=== PATIENT | female | born 1985 ===

== ENCOUNTER 2023-02-18 07:34 | Outpatient (REF) | payer OTHER, SELFPAY ==
[2023-02-18 07:47] LABS: MANUAL DIFF FLAG NO
[2023-02-18 08:10] LABS: Basophils Percent Auto 0.2 % (0-2); Eosinophils Absolute Auto 0.2 X10*3/uL (0.0-0.4); Eosinophils Percent Auto 2.6 % (0-4); Hematocrit 39.9 % (37.0-47.0); Hemoglobin 12.3 g/dl (12.0-16.0); Imm Gran Abs Auto 0.01 X10*3/uL (0.00-0.03); Imm Gran Pct Auto 0.2 % (0.0-0.4); Lymphocytes Percent Auto 33.9 % (20-40); Mean Corpuscular HGB Conc 30.8 g/dl (31.0-35.0); Mean Corpuscular Hemoglobin 25.3 pg (27.0-33.0); Mean Corpuscular Volume 82.1 fL (80.0-98.0); Mean Platelet Volume 10.5 fL (9.4-12.3); Monocytes Absolute Auto 0.4 X10*3/uL (0.1-1.2); Monocytes Percent Auto 6.5 % (2-11); Neutrophils Absolute Auto 3.3 x10*3/uL (2.0-8.3); Neutrophils Percent Auto 56.6 % (45-73); Platelet Count 398 X10*3/uL (160-400); Red Blood Count 4.86 X10*6/uL (4.20-5.50); Red Cell Distribution Width 13.7 % (11.0-16.0); White Blood Count 5.9 X10*3/uL (4.8-10.8)
[2023-02-18 09:00] LABS: TSH reflex Free T4 9.73 uIU/mL (0.32-4.0)
[2023-02-18 09:03] LABS: Alanine Aminotransferase 35 U/L (0-31); Albumin Level 4.1 g/dL (3.5-5.0); Alkaline Phosphatase 79 U/L (39-117); Anion Gap 10 (12-20); Aspartate Amino Transferase 32 U/L (5-31); Bilirubin Total 0.5 mg/dL (0.0-1.0); Blood Urea Nitrogen 8 mg/dL (9-16); Calcium 9.6 mg/dL (8.4-10.2); Carbon Dioxide 27 mmol/L (22-29); Chloride 106 mmol/L (96-108); Cholesterol 193 mg/dL; Estimated Glomerular Filt Rate > 60; HDL Cholesterol 43 mg/dL; LDL Cholesterol Calculated 141 mg/dl; Potassium 4.4 mmol/L (3.3-5.1); Sodium 139 mmol/L (135-145); Total Protein 7.6 g/dL (6.5-8.0); Triglycerides 45 mg/dL
[2023-02-18 10:17] LABS: Free T4 (Free Thyroxine) 0.92 ng/dL (0.71-1.85)
[2023-02-18 11:56] LABS: Glucose Random 99 mg/dL (60-115)
== END 2023-02-18 07:35 | disposition home or self-care (01) ==
LOC: HO.LAB 07:34
PROVIDERS: PCP Nurse Practitioner Family; Visit Provider Nurse Practitioner Family
DX: Z13.0 Encounter for screening for diseases of the blood and blood-forming organs and certain disorders involving the immune mechanism (principal); Z13.220 Encounter for screening for lipoid disorders; E03.9 Hypothyroidism, unspecified
CPT/HCPCS: 36415; 80053; 80061; 84439; 84443; 85025

== ENCOUNTER 2023-08-15 10:54 | Outpatient (AMB) | payer OTHER, SELFPAY ==
--- NOTE | 2023-08-15 10:56 | A.OFFPC_ITS ---
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 Patient of Dr. Mchugh presents today for physical exam. TSH in February 9.73, Free T4 0.92, at previous appointment patient revealed that she had been out of her levothyroxine x1 month and revealed elevated lfts patient was advised to get repeat blood work in 8 weeks however I do not see the results of this. Patient reminded to get previously ordered blood work completed. Patient states feeling fatigued, currently works 12 hour shifts over nights has been working 6 days a week. Labs ordered as as vitamin-D to further evaluate for any vitamin deficiencies Eye exam: Recommended every couple years. Flu shot refused, TDAP : Given in office today PFSH Medical History Acquired hypothyroidism Surgical History No pertinent past surgical history Family History Mother Diabetes Arthritis Thyroid disease Daughter Mental health disorder Social History Housing: House Alcohol intake: never Patient Tobacco Use Status: Former Tobacco user (1 year) e-Cigarette/Vaping Use: Never Used service: No Current occupational status: employed Questionnaire Thrive Questionnaire Date Thrive assessed: 02/14/23 RADHA-7 AMB Questionnaire RADHA-7 Date RADHA - 7 assessed: 02/14/23 Source: Developed by Drs. Carlos Gillespie, Mitzi Devine, Quentin Strickland and colleagues, with an educational manolo from [employer]. Review of Systems Const Denies chills, Denies fatigue, Denies fever(s) and Denies poor appetite Eyes Denies no additional complaints ENT Reports Normal hearing present Card Denies chest pain, Denies syncope, Denies rapid heart rate and Denies dyspnea Resp Denies cough and Denies dyspnea GI Denies change in stool character, Denies constipation, Denies diarrhea, Denies nausea and Denies vomiting Denies urinary frequency, Denies dysuria and Denies urinary urgency Neuro Reports Normal hearing present, Denies confusion and Denies syncope Psych Denies confusion Endo Denies fatigue Physical exam (Primary Care) Vital Signs: Last Vital Signs Pulse 98 08/15/23 11:00 BP 118/78 08/15/23 11:00 Pulse Ox 98 08/15/23 11:00 Oxygen Delivery Method Room Air 08/15/23 11:00 BMI result Body Mass Index 40.8 Tobacco/Smoking Status: Tobacco use Status Tobacco use date assessed 08/15/23 08/15/23 11:01 Patient Tobacco Use Status Former Tobacco user (1 year) 08/15/23 10:56 e-Cigarette/Vaping Use Never Used 08/15/23 10:56 Thrive Assessment: Date of Thrive Assessment Date Thrive assessed 02/14/23 08/15/23 10:56 Const General: No confusion Orientation/consciousness: No confusion HENMT Head: Yes normocephalic and Yes atraumatic Eyes Conjunctivae: conjunctivae normal Chest Chest palpation & inspection: normal inspection of the chest Resp Effort & Inspection: normal respiratory effort Auscultation: clear to auscultation bilaterally, no crackles, no rhonchi and no wheezes Cardio Rate: regular rate Rhythm: regular rhythm Heart sounds: S1 normal heart sound present and S2 normal heart sound present GI Inspection: Yes normal to inspection Neuro General: No confusion Cranial nerves: Yes Normal hearing present Extrem General: No edema Immunizations Adacel(Tdap Adolesn/Adult)(PF) 2 Lf-(2.5-5-3-5)-5 Lf/0.5 mL IM syringe Performing Provider: ALTHEA Shore [facility] [place] [facility] Administered by: Lina Wu RN on 08/15/23 11:34 Dose Route Admin Location Dispensed Lot Number Expiration Date 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 red meat. Follow-up fasting lipid panel ordered (2) Elevated LFTs: Code(s): R79.89 - Other specified abnormal findings of blood chemistry Plan: Patient reminded to get repeat CMP completed. (3) Acquired hypothyroidism: Code(s): E03.9 - Hypothyroidism, unspecified Plan: Patient advised to get repeat TSH. Patient states she had never picked up the levothyroxine 150 mcg, was currently taking levothyroxine 125 mcg daily. Patient advised to get previously ordered blood work completed to follow-up on her TSH level. (4) Physical exam, annual: Code(s): Z00.00 - Encounter for general adult medical examination without abnormal findings Plan: Follow-up in 1 year Plan Follow up in 1 year. Orders: Orders TDaP State Immunization Today Z23 - Encounter for immunization Complete Blood Count Auto Diff Today R79.89 - Other specified abnormal findings of blood chemistry Lipid Panel Today E78.5 - Hyperlipidemia, unspecified Vitamin D 25-OH Total Today R53.83 - Other fatigue Vitamin B12 and Folate Today R53.83 - Other fatigue Medications: Refilled levothyroxine 150 mcg PO DAILY 30 caps 2RF Coding Level of Care Code Est Pt Prev Care 18-39y(92708) Diagnoses Hyperlipidemia E78.5 Elevated LFTs R79.89 Acquired hypothyroidism E03.9 Physical exam, annual Z00.00
[2023-08-15 11:00] VITALS: BP 118/78; PULSE 98; O2SAT 98; BMI 40.8
== END 2023-08-15 11:34 | disposition home or self-care (01) ==
PROVIDERS: Visit Provider Nurse Practitioner Family
DX: Z00.00 Encounter for general adult medical examination without abnormal findings (principal); E66.01 Morbid (severe) obesity due to excess calories; Z68.41 Body mass index [BMI] 40.0-44.9, adult; E78.5 Hyperlipidemia, unspecified; Z23 Encounter for immunization; R79.89 Other specified abnormal findings of blood chemistry; E03.9 Hypothyroidism, unspecified
CPT/HCPCS: 90471; 90715; 99395

== ENCOUNTER 2023-08-16 11:45 | Outpatient (REF) | payer OTHER, SELFPAY ==
[2023-08-16 11:57] LABS: MANUAL DIFF FLAG NO
[2023-08-16 13:46] LABS: Basophils Percent Auto 0.4 % (0-2); Eosinophils Absolute Auto 0.2 X10*3/uL (0.0-0.4); Eosinophils Percent Auto 2.9 % (0-4); Hematocrit 39.3 % (37.0-47.0); Imm Gran Abs Auto 0.03 X10*3/uL (0.00-0.03); Imm Gran Pct Auto 0.4 % (0.0-0.4); Lymphocytes Percent Auto 24.4 % (20-40); Mean Corpuscular HGB Conc 30.5 g/dl (31.0-35.0); Mean Corpuscular Hemoglobin 24.4 pg (27.0-33.0); Mean Platelet Volume 10.9 fL (9.4-12.3); Monocytes Absolute Auto 0.6 X10*3/uL (0.1-1.2); Monocytes Percent Auto 7.3 % (2-11); Neutrophils Absolute Auto 5.3 x10*3/uL (2.0-8.3); Neutrophils Percent Auto 64.6 % (45-73); Platelet Count 376 X10*3/uL (160-400); Red Blood Count 4.91 X10*6/uL (4.20-5.50); Red Cell Distribution Width 14.6 % (11.0-16.0); White Blood Count 8.2 X10*3/uL (4.8-10.8)
[2023-08-16 14:54] LABS: Folate 13.2 ng/mL (> or = 4.0); Vitamin B12 383 pg/mL (200-900)
[2023-08-16 14:55] LABS: Cholesterol 178 mg/dL (<200); HDL Cholesterol 47 mg/dL (>40); LDL Cholesterol Calculated 120 mg/dL (<100); Triglycerides 55 mg/dL (<150)
[2023-08-16 15:00] LABS: TSH reflex Free T4 2.37 uIU/mL (0.32-4.0); Vitamin D 25-OH Total 12.5 ng/mL (>30)
== END 2023-08-16 11:46 | disposition home or self-care (01) ==
LOC: HO.LAB 11:45
PROVIDERS: PCP Nurse Practitioner Family; Visit Provider Nurse Practitioner Family
DX: E03.9 Hypothyroidism, unspecified (principal); R79.89 Other specified abnormal findings of blood chemistry; E78.5 Hyperlipidemia, unspecified; R53.83 Other fatigue
CPT/HCPCS: 36415; 80061; 82306; 82607; 82746; 84443; 85025

== ENCOUNTER 2024-09-11 15:05 | Outpatient (AMB) | payer BC, SELFPAY ==
[2024-09-11 15:07] VITALS: BP 110/72; PULSE 86; O2SAT 99; BMI 41.7
--- NOTE | 2024-09-11 15:07 | A.OFFPC_ITS ---
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 Allergies No Known Allergies Allergy (Verified 09/11/24 15:25) Medication List - Last Reconciled 09/11/24 by Alayna Miller PA-C cholecalciferol (vitamin D3) 50 mcg PO DAILY levothyroxine 150 mcg PO DAILY Tobacco use date assessed: 09/11/24 Dental Screening Dental Screen Date: 09/11/24 Did you have a dental visit in the last 12 months?: No Did you have a dental problem in the last 6 months where you did not have access to dental care?: No HPI Rsched from 08/28 [place] HPI Details 38-year-old female with past medical his tory of hypothyroidism and obesity last seen by nurse practitioner July 2023 coming in for annual exam. Patient has a history of hypothyroid and states she has been without her medication for about a month. She is not up-to-date on Pap smears and does not have a routine eye doctor. [facility] Medical History Acquired hypothyroidism Surgical History No pertinent past surgical history Family History Mother Diabetes Arthritis Thyroid disease Daughter Mental health disorder Social History Housing: House Alcohol intake: never Patient Tobacco Use Status: Former Tobacco user (1 year) e-Cigarette/Vaping Use: Never Used service: No Current occupational status: employed Cognitive needs: No Hearing needs: No Vision needs: No Questionnaire PHQ-9 Over the last 2 weeks, how often have you been bothered by any of the following problems? 1. Little interest or pleasure in doing things: not at all 2. Feeling down, depressed, or hopeless: not at all 3. Trouble falling or staying asleep, or sleeping too much: not at all 7. Trouble concentrating on things, such as reading the newspaper or watching television: not at all 8. Moving or speaking so slowly that other people could have noticed. Or the opposite - being so fidgety or restless that you have been moving around a lot more than usual: not at all 9. Thoughts that you would be better off or of hurting yourself in some way: not at all Depression Screening Interpretation: Negative Depression Screening Done: Yes 72635 - PHQ-9 Billing: Yes Source: Developed by Drs. Carlos Gillespie, Mitzi Devine, Quentin Strickland and colleagues, with an educational manolo from [employer]. Thrive Questionnaire Date Thrive assessed: 09/11/24 I am a: Patient What is your living situation today?: I choose not to answer this question Within the past 12 months, did the food you bought not last and you didn't have the money to get more?: I choose not to answer this question Within the past 12 months, did you worry whether your food would run out before you got money to buy more?: I choose not to answer this question Do you have trouble paying for medicines?: I choose not to answer this question Do you have trouble getting transportation to medical appointments?: No Do you have trouble paying your heating and electricity bill?: I choose not to answer this question Do you have trouble taking care of your child, family member or friend?: No Do you have trouble with day-to-day activities such as bathing, preparing meals, shopping, managing finances, etc.?: No Are you currently unemployed and looking for a job?: No Are you interested in more education?: I choose not to answer this question Please select the resources that you would like help with: None Currently or been in a relationship where the following occur: I choose not to answer THRIVE Score: 0 AUDIT C Alcohol Use Questionnaire (AUDIT-C) 1. How often do you have a drink containing alcohol?: Monthly or less 2. How many drinks containing alcohol do you have on a typical day when you are drinking?: 1 or 2 3. How often do you have six or more drinks on one occasion?: Less than monthly Total Score: 2 RADHA-7 AMB Questionnaire RADHA-7 Date RADHA - 7 assessed: 09/11/24 Feeling nervous, anxious, or on edge: 0 = Not at all Not being able to stop or control worryin = Not at all Worrying too much about different things: 0 = Not at all Trouble relaxin = Not at all Being so restless that it is hard to sit still: 0 = Not at all Becoming easily annoyed or irritable: 0 = Not at all Feeling afraid as if something awful might happen: 0 = Not at all Total RADHA-7 score (0-4 normal; 5-9 mild; 10-14 moderate; 15-21 severe): 0 Source: Developed by Drs. Carlos Gillespie, Mitzi Devine, Quentin Strickland and colleagues, with an educational manolo from [employer]. RADHA-7 Assessment Billing RADHA-7 Assessment Tool: RADHA-7 Assessment 16322 Review of Systems Const Denies body aches, Denies fatigue, Denies fever(s), Denies frequent falls, Denies headache(s) and Denies weakness Eyes Reports no additional complaints and Denies change in vision ENT Denies dysphagia, Denies dizziness, Denies facial pain, Denies headache(s), Denies nasal congestion and Denies odynophagia Card Denies chest pain, Denies syncope, Denies irregular heart rhythm, Denies leg edema, Denies lightheadedness and Denies dyspnea Resp Denies cough and Denies dyspnea GI Denies abdominal pain, Denies constipation, Denies dysphagia, Denies dyspepsia, Denies diarrhea, Denies nausea, Denies odynophagia and Denies vomiting Denies urinary frequency, Denies dysuria, Denies urinary hesitancy and Denies urinary urgency Musc Details: left shoulder pain Denies back pain and Denies myalgias Skin/Breast Reports system reviewed and no additional complaints, except as documented Neuro Denies dizziness, Denies syncope, Denies frequent falls, Denies headache(s) and Denies weakness Psych Reports no additional complaints Endo Denies fatigue Physical exam (Primary Care) Vital Signs: Last Vital Signs Pulse 86 09/11/24 15:07 BP 110/72 09/11/24 15:07 Pulse Ox 99 09/11/24 15:07 Oxygen Delivery Method Room Air 09/11/24 15:07 BMI result Body Mass Index 41.7 Tobacco/Smoking Status: Tobacco use Status Tobacco use date assessed 09/11/24 09/11/24 15:07 Patient Tobacco Use Status Former Tobacco user (1 year) 09/11/24 15:07 e-Cigarette/Vaping Use Never Used 09/11/24 15:07 Depression Screening Interpretation: Negative Thrive Assessment: Date of Thrive Assessment Date Thrive assessed 09/11/24 09/11/24 15:07 Currently or been in a relationship where the following occur: I choose not to answer Const General: cooperative, healthy appearing, comfortable and no acute distress Orientation/consciousness: patient oriented x3 HENMT Head: Yes normocephalic Ears: hearing grossly normal bilaterally, external ears normal, TM's normal bilaterally and EAC's normal General nose exam: Normal external nose present Face and sinus: Yes normal facial exam and Yes sinuses nontender Mouth: Normal oral and palatal mucosa present and tongue normal Throat: Yes posterior oropharynx normal Eyes General: appearance normal, both eyes and all related structures Conjunctivae: conjunctivae normal Pupils: Equal, round and reactive pupils present EOM: EOMs intact bilaterally and No Nystagmus present Neck Neck: Yes normal visual inspection, Yes full ROM and Yes no lymphadenopathy Chest Chest palpation & inspection: normal inspection of the chest Resp Effort & Inspection: normal respiratory effort Auscultation: clear to auscultation bilaterally, no crackles, no rales, no rhonchi, no wheezes and breath sounds present Cardio Rate: regular rate Rhythm: regular rhythm Peripheral pulses: radial pulses present and dorsalis pedis present GI Inspection: Yes normal to inspection and No Abdominal wall edema Palpation (GI): Soft to palpation, not firm and nontender Auscultation: normal bowel sounds Rectal Exam - Female: deferred General: Yes no CVA tenderness Back/Spine/Pelvis Back: no CVA tenderness Skin General skin exam: no rashes or lesions noted Neuro General: patient oriented x3 Cranial nerves: Yes Equal, round and reactive pupils present, Yes Midline tongue present, Yes Ability to bilaterally elevate shoulders present and No Nystagmus present Gait exam (Neuro): Normal gait present Extrem General: Yes normal to inspection, Yes full ROM, No no pedal edema and No edema Psych Speech and movement: Normal speech and movement present Affect: normal affect Insight: Good insight present (Psych) Judgement: Good judgement present (Psych) Coding Level of Care Code Est Pt Prev Care 18-39y(24060) Diagnoses Low vitamin D level R79.89 Hyperlipidemia E78.5 Elevated LFTs R79.89 Morbid obesity with BMI of 40.0-44.9, adult E66.01; Z68.41 Acquired hypothyroidism E03.9 Annual physical exam Z00.00 Additional Codes RADHA-7 Assessment Billing - RADHA-7 Assessment Tool: RADHA-7 Assessment 55117 ([id number]) PHQ-9 - 91266 - PHQ-9 Billing: Yes ([id number]) Assessment & Plan Assessment & Plan (1) Low vitamin D level: Code(s): R79.89 - Other specified abnormal findings of blood chemistry Category: Medical Plan: We will continue to monitor with blood work and continue on vitamin D3 supplementation (2) Hyperlipidemia: Code(s): E78.5 - Hyperlipidemia, unspecified Category: Medical Plan: Avoid foods that are high in cholesterol such as red meat, fried foods, eggs and baked goods. Triglyceride goal of less than 150 and LDL goal of less than 130. We will repeat lab work. (3) Elevated LFTs: Code(s): R79.89 - Other specified abnormal findings of blood chemistry Category: Medical Plan: We will repeat lab work. Healthy diet and regular exercise is encouraged. (4) Morbid obesity with BMI of 40.0-44.9, adult: Code(s): E66.01 - Morbid (severe) obesity due to excess calories; Z68.41 - Body mass index [BMI] 40.0-44.9, adult Category: Medical Plan: Healthy diet and regular exercise is encouraged. (5) Acquired hypothyroidism: Code(s): E03.9 - Hypothyroidism, unspecified Category: Medical Plan: Refilled levothyroxine advised patient to have lab work done. (6) Annual physical exam: Code(s): Z00.00 - Encounter for general adult medical examination without abnormal findings Category: Medical Plan: Patient is not up-to-date on all recommended routine screenings and vaccinations for her age. Tetanus shot is up-to-date. Patient states she does not have a automation mechanic and we will find 1 herself as she does not live in this area. Advised patient to reach out with the name of her automation mechanic so we can request the notes. Plan This note was constructed using voice recognition software. While every effort has been made to ensure accuracy and application development specialist, still areas may have been included sometimes these areas may affect the content or meeting of the given symptoms. Total time spent caring for the patient today was 30 minutes. This includes time spent before the visit reviewing the chart, time spent during the visit, and time spent after the visit and documentation. Orders: Orders Complete Blood Count Auto Diff Today Z00.00 - Encounter for general adult medical examination without abnormal findings Free T4 (Free Thyroxine) Today Z00.00 - Encounter for general adult medical examination without abnormal findings TSH reflex Free T4 Today Z00.00 - Encounter for general adult medical examination without abnormal findings UA CC w/rflx Micro + Cult Today R35.89 - Other polyuria Free T4 (Free Thyroxine) 2 Months E03.9 - Hypothyroidism, unspecified Comprehensive Met. Panel Today Z00.00 - Encounter for general adult medical examination without abnormal findings Vitamin B12 and Folate Today Z00.00 - Encounter for general adult medical examination without abnormal findings Vitamin D 25-OH (D2 and D3) Today Z00.00 - Encounter for general adult medical examination without abnormal findings Lipid Panel Today Z00.00 - Encounter for general adult medical examination without abnormal findings TSH reflex Free T4 2 Months E03.9 - Hypothyroidism, unspecified Medications: Refilled levothyroxine 150 mcg PO DAILY 90 caps 2RF
== END 2024-09-11 15:43 | disposition home or self-care (01) ==
DX: Z00.00 Encounter for general adult medical examination without abnormal findings (principal); E78.5 Hyperlipidemia, unspecified; E66.01 Morbid (severe) obesity due to excess calories; Z68.41 Body mass index [BMI] 40.0-44.9, adult; E03.9 Hypothyroidism, unspecified

== ENCOUNTER → 2024-09-11 15:05 | Outpatient (BNVA) | payer BC, SELFPAY | DX: Z00.00 Encounter for general adult medical examination without abnormal findings (principal); E55.9 Vitamin D deficiency, unspecified; E78.5 Hyperlipidemia, unspecified; R79.89 Other specified abnormal findings of blood chemistry; E66.01 Morbid (severe) obesity due to excess calories; Z68.41 Body mass index [BMI] 40.0-44.9, adult; E03.9 Hypothyroidism, unspecified | CPT/HCPCS: 96127 ==

== ENCOUNTER 2024-11-14 10:12 | Outpatient (REF) | payer BC, SELFPAY ==
--- OUTSIDE RECORDS SUMMARY | 2024-11-14 10:15 | XMS_ITS | Clinical Summary ---
Author Organization [facility] it Address [address] [place] [address] Care Team Providers Care Pool Coordinator Name Role Phone Unavailable Primary Care Provider Unavailabl e Social History Tobacco Use Types Packs/Day Years Used Date Smoking Tobacco: Never Assessed Sex and Gender Information Value Date Recorded Sex Assigned at Not on file Gender Identity Not on file Sexual Orientation Not on file Plan of Treatment Health Maintenance Due Date Last Done Comments DTaP,Tdap,and Td Vaccines (1 - Tdap) 2004 Hepatitis B Vaccines (1 of 3 - 19+ 3-dose series) 2004 Cervical Cancer Screening: P ap Smear 2006 Depression Screening 09/18/2022 HIV Screening 09/18/2022 Hepatitis C Screening 09/18/2022 Social Influencers of Health Screening 09/18/2022 COVID-19 Vaccine (2023-2 5 season) 2024 Influenza Vaccine (#1) 2024 HIB Vaccines Aged Out No longer eligi ble based on patient's age to complete this topic HPV Vaccines Aged Out No longer eligi ble based on patient's age to complete this topic Hepatitis A Vaccines Aged Out No long er eligible based on patient's age to complete this topic IPV Vaccines Aged Out No longer eligi ble based on patient's age to complete this topic MMR Vaccines Aged Out No longer eligi ble based on patient's age to complete this topic Meningococcal ACWY Vaccine Aged Out N o longer eligible based on patient's age to complete this topic Pneumococcal Vaccine: Pediat rics (0 to 5 Years) and At-Risk Patients (6 to 64 Years) Aged Out No longer eligible b ased on patient's age to complete this topic RSV Immunization Patients Un nilesh 20 months Aged Out No longer eligible b ased on patient's age to complete this topic Varicella Vaccines Aged Out No longer eligible based on patient's age to complete this topic
[2024-11-14 10:29] LABS: MANUAL DIFF FLAG NO
[2024-11-14 11:24] LABS: Basophils Percent Auto 0.3 % (0-2); Eosinophils Absolute Auto 0.2 X10*3/uL (0.0-0.4); Eosinophils Percent Auto 3.3 % (0-4); Hematocrit 38.8 % (37.0-47.0); Hemoglobin 11.9 g/dl (12.0-16.0); Imm Gran Abs Auto 0.02 X10*3/uL (0.00-0.03); Imm Gran Pct Auto 0.3 % (0.0-0.4); Lymphocytes Absolute Auto 2.2 X10*3/uL (1.2-4.9); Lymphocytes Percent Auto 36.6 % (20-40); Mean Corpuscular HGB Conc 30.7 g/dl (31.0-35.0); Mean Corpuscular Hemoglobin 25.2 pg (27.0-33.0); Mean Corpuscular Volume 82.2 fL (80.0-98.0); Mean Platelet Volume 10.7 fL (9.4-12.3); Monocytes Absolute Auto 0.5 X10*3/uL (0.1-1.2); Neutrophils Absolute Auto 3.2 x10*3/uL (2.0-8.3); Neutrophils Percent Auto 51.5 % (45-73); Platelet Count 362 X10*3/uL (160-400); Red Blood Count 4.72 X10*6/uL (4.20-5.50); Red Cell Distribution Width 14.5 % (11.0-16.0); White Blood Count 6.1 X10*3/uL (4.8-10.8)
[2024-11-14 11:28] LABS: Appearance Urine Cloudy; Color Urine Yellow; Glucose Urine UA Negative (Negative); Leukocyte Esterase Urine Negative (Negative); Nitrite Urine Negative (Negative); Specific Gravity - Urine 1.025 (1.005-1.025); Urine Blood Negative (Negative); Urine Ketones Negative (Negative); Urine Protein Negative (Neg-Trace)
[2024-11-14 12:11] LABS: Alanine Aminotransferase 28 U/L (0-31); Albumin Level 3.8 g/dL (3.5-5.0); Alkaline Phosphatase 70 U/L (39-117); Anion Gap 11 (12-20); Aspartate Amino Transferase 34 U/L (5-31); Bilirubin Total 0.4 mg/dL (0.0-1.0); Blood Urea Nitrogen 8 mg/dL (9-16); Calcium 8.7 mg/dL (8.4-10.2); Carbon Dioxide 25 mmol/L (22-29); Chloride 107 mmol/L (96-108); Cholesterol 185 mg/dL (<200); Estimated Glomerular Filt Rate > 60; Glucose Random 92 mg/dL (60-115); HDL Cholesterol 48 mg/dL (>40); LDL Cholesterol Calculated 125 mg/dL (<100); Potassium 4.2 mmol/L (3.3-5.1); Sodium 139 mmol/L (135-145); Triglycerides 61 mg/dL (<150)
[2024-11-14 12:17] LABS: Free T4 (Free Thyroxine) 0.89 ng/dL (0.71-1.85); TSH reflex Free T4 7.76 uIU/mL (0.32-4.0)
[2024-11-14 12:34] LABS: Folate 12.5 ng/mL (> or = 4.0); Vitamin B12 351 pg/mL (200-900)
[2024-11-18 15:49] LABS: Vitamin D 25-OH, D2 <4 ng/mL; Vitamin D 25-OH, D3 11 ng/mL; Vitamin D 25-OH, Total 11 ng/mL (30-100)
== END 2024-11-14 10:13 | disposition home or self-care (01) ==
LOC: HO.LAB 10:12
DX: Z00.00 Encounter for general adult medical examination without abnormal findings (principal); E03.9 Hypothyroidism, unspecified; R35.89 Other polyuria
CPT/HCPCS: 36415; 80053; 80061; 81003; 82306; 82607; 82746; 84439; 84443; 85025

== ENCOUNTER 2024-11-17 14:36 | Outpatient (AMB) | payer BC, SELFPAY ==
--- NOTE | 2024-11-17 14:44 | A.OFFPC_ITS ---
Vital Signs 11/17/24 14:46 Height 5 ft 2 in Weight 230 lb 8 oz BMI 42.2 BP 130/74 Blood Pressure Location Lt brachial Position Sitting Pulse 77 Pulse Source Pulse Oximeter Temp 97.1 F Temp Source Skin Pulse Oximetry (%) 99 Oxygen Delivery Method Room Air Intake Visit Reasons: Thyroid F/U Intake Note: Patient is here to follow up on Thyroid. Rattle Leak And Squeak Repairer Required: No Supervisor Pumping Station: Not Required per policy Accompanied by: Self / Same As Patient Allergies No Known Allergies Allergy (Verified 11/17/24 14:45) Medication List - Last Reconciled 11/17/24 by Alayna Miller PA-C cholecalciferol (vitamin D3) 50 mcg PO DAILY levothyroxine 150 mcg PO DAILY Tobacco use date assessed: 11/17/24 Dental Screening Dental Screen Date: 11/17/24 Did you have a dental visit in the last 12 months?: No Did you have a dental problem in the last 6 months where you did not have access to dental care?: No Was dental information given to patient?: No HPI Thyroid F/U HPI Details 39-year-old female with past medical his tory of hypothyroidism and obesity last seen 08/2024 coming in for follow up on thyroid medication.?In review of the notes, patient was restarted on her levothyroxine and had thyroid labs drawn showing elevated TSH likely will need an increase in her levothyroxine. Patient tells us today she has not been taking her levothyroxine in the morning separate from other medications and food and has also been missing several doses. She is also wondering if she can have an ultrasound of the thyroid as she can occasionally feel masses in the thyroid. She is also complaining of occasional back stiffness typically in the morning after she wakes up and uses Tylenol and ibuprofen for this concern. [facility] Medical History Acquired hypothyroidism Surgical History No pertinent past surgical history Family History Mother Diabetes Arthritis Thyroid disease Daughter Mental health disorder Social History (Updated 11/17/24 @ 14:51 by Shimarlia Kwade, RMA) Housing: House Alcohol intake: never Patient Tobacco Use Status: Former Tobacco user (1 year) e-Cigarette/Vaping Use: Never Used Second Hand Smoke Exposure: Yes Substance Use Type: Marijuana service: No Current occupational status: employed Cognitive needs: No Hearing needs: No Vision needs: No Questionnaire PHQ-9 Over the last 2 weeks, how often have you been bothered by any of the following problems? 1. Little interest or pleasure in doing things: not at all 2. Feeling down, depressed, or hopeless: not at all 3. Trouble falling or staying asleep, or sleeping too much: not at all 4. Feeling tired or having little energy: not at all 5. Poor appetite or overeating: not at all 6. Feeling bad about yourself - or that you are a failure or have let yourself or your family down: not at all 7. Trouble concentrating on things, such as reading the newspaper or watching television: not at all 8. Moving or speaking so slowly that other people could have noticed. Or the opposite - being so fidgety or restless that you have been moving around a lot more than usual: not at all 9. Thoughts that you would be better off or of hurting yourself in some way: not at all Total score: 0 Depression Screening Interpretation: Negative Depression Screening Done: Yes Source: Developed by Drs. Carlos Gillespie, Mitzi Devine, Quentin Strickland and colleagues, with an educational manolo from [employer]. Thrive Questionnaire Date Thrive assessed: 11/17/24 I am a: Patient What is your living situation today?: I choose not to answer this question Within the past 12 months, did the food you bought not last and you didn't have the money to get more?: I choose not to answer this question Within the past 12 months, did you worry whether your food would run out before you got money to buy more?: I choose not to answer this question Do you have trouble paying for medicines?: I choose not to answer this question Do you have trouble getting transportation to medical appointments?: No Do you have trouble paying your heating and electricity bill?: I choose not to a nswer this question Do you have trouble taking care of your child, family member or friend?: No Do you have trouble with day-to-day activities such as bathing, preparing meals, shopping, managing finances, etc.?: No Are you currently unemployed and looking for a job?: No Are you interested in more education?: I choose not to answer this question Please select the resources that you would like help with: None Currently or been in a relationship where the following occur: I choose not to answer THRIVE Score: 0 AUDIT C Alcohol Use Questionnaire (AUDIT-C) 1. How often do you have a drink containing alcohol?: Monthly or less 2. How many drinks containing alcohol do you have on a typical day when you are drinking?: 1 or 2 Total Score: 1 RADHA-7 AMB Questionnaire RADHA-7 Date RADHA - 7 assessed: 11/17/24 Feeling nervous, anxious, or on edge: 0 = Not at all Not being able to stop or control worryin = Not at all Worrying too much about different things: 0 = Not at all Trouble relaxin = Not at all Being so restless that it is hard to sit still: 0 = Not at all Becoming easily annoyed or irritable: 0 = Not at all Feeling afraid as if something awful might happen: 0 = Not at all Total RADHA-7 score (0-4 normal; 5-9 mild; 10-14 moderate; 15-21 severe): 0 Source: Developed by Drs. Carlos Gillespie, Mitzi Devine, Quentin Strickland and colleagues, with an educational manolo from [employer]. Review of Systems Const Denies body aches, Denies chills, Denies fever(s), Denies headache(s) and Denies poor appetite Eyes Reports no additional complaints ENT Denies dizziness and Denies headache(s) Card Denies chest pain, Denies irregular heart rhythm, Reports lightheadedness and Denies dyspnea Resp Denies cough and Denies dyspnea GI Reports no additional complaints Reports no additional complaints Musc Details: Back and neck pain Reports no additional complaints and Denies abnormal gait Skin/Breast Reports system reviewed and no additional complaints, except as documented Neuro Denies abnormal gait, Denies dizziness and Denies headache(s) Psych Reports no additional complaints Physical exam (Primary Care) Vital Signs: Last Vital Signs Temp 97.1 F 11/17/24 14:46 Pulse 77 11/17/24 14:46 BP 130/74 11/17/24 14:46 Pulse Ox 99 11/17/24 14:46 Oxygen Delivery Method Room Air 11/17/24 14:46 BMI result Body Mass Index 42.2 Tobacco/Smoking Status: Tobacco use Status Tobacco use date assessed 11/17/24 11/17/24 14:48 Patient Tobacco Use Status Former Tobacco user (1 year) 11/17/24 14:51 e-Cigarette/Vaping Use Never Used 11/17/24 14:51 PHQ-9: PHQ-9 Score PHQ-9: Total score 0 11/17/24 14:48 Depression Screening Interpretation: Negative Thrive Assessment: Date of Thrive Assessment Date Thrive assessed 11/17/24 11/17/24 14:48 Currently or been in a relationship where the following occur: I choose not to answer Const General: cooperative, healthy appearing, comfortable and no acute distress Orientation/consciousness: patient oriented x3 HENMT Head: Yes normocephalic Ears: hearing grossly normal bilaterally General nose exam: Normal external nose present Eyes General: appearance normal, both eyes and all related structures Conjunctivae: conjunctivae normal Neck Neck: Yes full ROM and Yes no lymphadenopathy Thyroid: Thyroid normal, not diffusely enlarged, no masses and no nodules Resp Effort & Inspection: normal respiratory effort Auscultation: clear to auscultation bilaterally, no crackles, no rales, no rhonchi and no wheezes Cardio Rate: regular rate Rhythm: regular rhythm Back/Spine/Pelvis Other: tenderness to palpation over thoracic spine and cervical spine Skin General skin exam: no rashes or lesions noted Neuro General: patient oriented x3 Gait exam (Neuro): Normal gait present Extrem General: Yes normal to inspection, Yes full ROM and No edema Psych Affect: normal affect Attitude: cooperative Insight: Good insight present (Psych) Judgement: Good judgement present (Psych) Coding Level of Care Code Est Pt Level 4 (15726) Diagnoses Morbid obesity with BMI of 40.0-44.9, adult E66.01; Z68.41 Acquired hypothyroidism E03.9 Back pain M54.9 Assessment & Plan Assessment & Plan (1) Morbid obesity with BMI of 40.0-44.9, adult: Code(s): E66.01 - Morbid (severe) obesity due to excess calories; Z68.41 - Body mass index [BMI] 40.0-44.9, adult Category: Medical Plan: Healthy diet and regular exercise is encouraged. (2) Acquired hypothyroidism: Code(s): E03.9 - Hypothyroidism, unspecified Category: Medical Plan: Patient states she has not been taking her levothyroxine as instructed and also misses several doses. Discussed with patient the importance of taking the medication in the morning separate from any other medication or food and taking it regularly. We will repeat thyroid labs in 3 weeks. Also ordered for thyroid ultrasound as she is complaining of palpable nodules which were not appreciated on exam today. (3) Back pain: Code(s): M54.9 - Dorsalgia, unspecified Category: Medical Plan: Patient complaining of mid to low back pain worse in the morning. Patient describes back stiffness and muscle strain. Advised to use heating pad for muscle pain, encouraged gentle stretching of the back and also given muscle relaxer for nighttime pain. Can consider referral to Orthopedics. Plan This note was constructed using voice recognition software. While every effort has been made to ensure accuracy and integrity consultant, still areas may have been included sometimes these areas may affect the content or meeting of the given symptoms. Total time spent caring for the patient today was 20 minutes. This includes time spent before the visit reviewing the chart, time spent during the visit, and time spent after the visit and documentation. Orders: Orders TSH reflex Free T4 3 Weeks E03.9 - Hypothyroidism, unspecified Free T4 (Free Thyroxine) 3 Weeks E03.9 - Hypothyroidism, unspecified US thyroid Today E03.9 - Hypothyroidism, unspecified IRON PROFILE Today D64.9 - Anemia, unspecified, E03.9 - Hypothyroidism, unspecified Medications: New cyclobenzaprine 5 mg PO BEDTIME PRN 14 tabs 0RF muscle spasm Refilled cholecalciferol (vitamin D3) 50 mcg PO DAILY 90 caps 3RF E03.9 - Hypoth yroidism, unspecified levothyroxine 150 mcg PO DAILY 90 tabs 2RF
[2024-11-17 14:46] VITALS: BP 130/74; PULSE 77; TEMP 36.2; O2SAT 99; BMI 42.2
--- OUTSIDE RECORDS SUMMARY | 2024-11-17 15:30 | XMS_ITS | Clinical Summary ---
Author Organization [facility] it Address [address] [place] [address] Care Team Providers Care Satin Finisher Name Role Phone Unavailable Primary Care Provider [...]
== END 2024-11-17 15:15 | disposition home or self-care (01) ==
DX: E66.01 Morbid (severe) obesity due to excess calories (principal); Z68.41 Body mass index [BMI] 40.0-44.9, adult; E03.9 Hypothyroidism, unspecified; M54.9 Dorsalgia, unspecified

== ENCOUNTER 2024-11-27 15:52 | Outpatient (REF) | payer BC, SELFPAY | END 2024-11-27 15:53 | disposition home or self-care (01) | LOC: HO.US 15:52 | DX: E03.9 Hypothyroidism, unspecified (principal) | CPT/HCPCS: 76536 ==

== ENCOUNTER → 2024-11-27 15:55 | Outpatient (BNV) | payer BC, SELFPAY | PROVIDERS: Visit Provider Radiology Diagnostic Radiology | DX: E03.9 Hypothyroidism, unspecified (principal); E06.0 Acute thyroiditis | CPT/HCPCS: 76536 ==